=== PATIENT | female | born 1995 | race Caucasian/White ===

== ENCOUNTER 2017-12-08 18:17 | Emergency (ER) | payer SELFPAY, MEDICAID | END 2017-12-08 20:45 | disposition left against medical advice (07) | LOC: E/R 18:17 | DX: Z53.21 Procedure and treatment not carried out due to patient leaving prior to being seen by health care provider (principal) ==

== ENCOUNTER 2018-05-25 17:16 | Emergency (ER) | payer MEDICAID ==
[2018-05-25 19:49] LABS: ADD UMIC YES; UR ASCORBIC ACID NEGATIVE (NEGATIVE); UR BILIRUBIN (Dip) NEGATIVE (NEGATIVE); UR BLOOD (Dip) NEGATIVE (NEGATIVE); UR CLARITY CLEAR (CLEAR); UR COLOR YELLOW (YELLOW); UR GLUCOSE (Dip) NEGATIVE (NEGATIVE); UR KETONES (Dip) NEGATIVE (NEGATIVE); UR LEUKOCYTE ESTERASE (Dip) TRACE Leu/ul (NEGATIVE); UR MUCUS FEW /HPF (NONE SEEN); UR NITRITE (Dip) NEGATIVE (NEGATIVE); UR RBC 1 /HPF (0-5); UR SPECIFIC GRAVITY (Dip) 1.032 (1.003-1.030); UR SQUAMOUS EPITHELIAL CELL FEW /HPF (FEW); UR TOTAL PROTEIN (Dip) NEGATIVE (NEGATIVE); UR UROBILINOGEN (Dip) 2+ mg/dL (NEGATIVE); UR WBC 7 /HPF (0-5)
== END 2018-05-25 20:01 | disposition home or self-care (01) ==
LOC: FTE 17:16
DX: J02.9 Acute pharyngitis, unspecified (principal); R30.0 Dysuria
CPT/HCPCS: 81001; 81025; 87086; 99283